=== PATIENT | female | born 1990 | race Caucasian/White ===

== ENCOUNTER 2018-06-12 09:33 | Emergency (ER) | payer BC, MEDICAID, OTHER ==
--- NOTE | 2018-06-12 09:57 | ER Document Report ---
ED Medical Screen (RME) - General Chief Complaint: Headache Stated Complaint: HEADACHE/RIGHT SIDE NUMBNESS/RIGHT EYE BLURRY Time Seen by Provider: 06/12/18 09:50 Primary Care Provider: PERRY SANTIZO MD [Primary Care Provider] - Follow up as needed Notes: Patient is a 28-year-old female that presents to the emergency department for chief complaint of headache and right-sided numbness. 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 ROS: Other than noted above, the 12 point review of systems was reviewed with the patient and were negative, all pertinent findings are included in the HPI. PHYSICAL EXAMINATION: Vital signs reviewed. GENERAL: Well-appearing, well-nourished and in no acute distress. HEAD: Atraumatic, normocephalic. EYES: Pupils equal round extraocular movements intact, conjunctiva are normal. ENT: Nares patent NECK: Normal range of motion CV: Heart regular rate and rhythm LUNGS: No respiratory distress Musculoskeletal: Normal range of motion NEUROLOGICAL: Normal speech, facial droop noted, there is decreased sensation to light touch in the upper and lower extremities on my exam, strength with print producer is +4/5 on the right compared to the left, patient is able to flex at the shoulders and hips, with +5/5 strength. PSYCH: Normal mood, normal affect. MDM: Patient seen and examined for rapid initial assessment. Vital signs reviewed. A comprehensive ED assessment and evaluation of the patient, analysis of test results and completion of the medical decision making process will be conducted by additional ED providers. *Note is created using voice recognition software and may contain spelling, syntax or grammatical errors. TRAVEL OUTSIDE OF THE [place] IN LAST 30 DAYS: No - Related Data Allergies/Adverse Reactions: No Known Allergies Allergy (Verified 06/12/18 09:50) Past Medical History - Social History Frequency of alcohol use: None Drug Abuse: None - Past Medical History Cardiac Medical History: Reports: Hx Heart Murmur Denies: Hx Hypertension Renal/ Medical History: Reports: Hx Kidney Stones. Denies: Hx Peritoneal Dialysis Past Surgical History: Reports: Hx Section - x 3 - Immunizations Hx Diphtheria, Pertussis, Tetanus Vaccination: Yes - 12/17/10 Physical Exam - Vital signs Vitals: Temp Pulse Resp BP Pulse Ox 98.2 F 83 18 149/60 H 100 06/12/18 09:39 06/12/18 09:39 06/12/18 09:39 06/12/18 09:39 06/12/18 09:39 Course - Vital Signs Vital signs: Temp Pulse Resp BP Pulse Ox 98.2 F 83 18 149/60 H 100 06/12/18 09:39 06/12/18 09:39 06/12/18 09:39 06/12/18 09:39 06/12/18 09:39 Doctor's Discharge - Discharge Referrals: PERRY SANTIZO MD [Primary Care Provider] - Follow up as needed
[2018-06-12] MEDS ORDERED: NORMAL SALINE 1000 ML 1,000 ML IV ONE (10:16)
--- NOTE | 2018-06-12 10:19 | ER Document Report ---
ED Headache - General Chief Complaint: Headache Stated Complaint: HEADACHE/RIGHT SIDE NUMBNESS/RIGHT EYE BLURRY Time Seen by Provider: 06/12/18 09:50 Primary Care Provider: ALESSANDRA JOVEL MD [NO LOCAL MD] - Follow up tomorrow PERRY SANTIZO MD [ACTIVE STAFF] - Follow up as needed Mode of Arrival: Ambulatory Information source: Patient Notes: Patient presents complaining of right-sided headache that started around 6:40 PM yesterday and lasted for about 30 minutes. Patient reports that whenever the pain started she did have some blurred vision and some tearing to the right eye. Patient states she did take Tylenol to help her headache pain. Patient reports having a right-sided numbness and weakness to the right upper and lower extremity. Patient denies any fever or head injury. Patient denies any recent illnesses. Patient denies any family history of aneurysm or headache. Patient reports her mother does have a history of Moulton's palsy. Patient states that headache pain is gone at this time although reports a mild pressure to the right side of her head. TRAVEL OUTSIDE OF THE [place] IN LAST 30 DAYS: No - HPI Patient complains to provider of: Headache Onset: Yesterday Onset was: Abrupt Timing: Gone now Quality of pain: Pressure Pain Level: 0 Associated symptoms: Tingling/numb sensation. denies: Fever, Nausea/vomiting, Neck pain, Photophobia, Stiff neck Similar symptoms previously: No Recently seen / treated by doctor: No - Related Data Allergies/Adverse Reactions: No Known Allergies Allergy (Verified 06/12/18 09:50) Past Medical History - General Information source: Patient - Social History Smoking Status: Current Every Day Smoker Frequency of alcohol use: None Drug Abuse: None Occupation: Retail Family History: Reviewed & Not Pertinent Patient has suicidal ideation: No Patient has homicidal ideation: No - Past Medical History Cardiac Medical History: Reports: Hx Heart Murmur Denies: Hx Hypertension Renal/ Medical History: Reports: Hx Kidney Stones. Denies: Hx Peritoneal Dialysis Past Surgical History: Reports: Hx Section - x 3 - Immunizations Hx Diphtheria, Pertussis, Tetanus Vaccination: Yes - 12/17/10 Review of Systems - Review of Systems Constitutional: No symptoms reported. denies: Fever, Recent illness EENT: Blurred vision - Yesterday when headache started, now resolved, Tearing Cardiovascular: No symptoms reported. denies: Syncope, Dizziness Respiratory: No symptoms reported. denies: Cough Gastrointestinal: No symptoms reported. denies: Vomiting Genitourinary: No symptoms reported Female Genitourinary: No symptoms reported Musculoskeletal: No symptoms reported. denies: Back pain, Neck pain Skin: No symptoms reported. denies: Rash Hematologic/Lymphatic: No symptoms reported Neurological/Psychological: Headaches, Numbness - Right upper and lower extremity yesterday, now resolved, Tingling - Right upper and lower extremity. denies: Weakness, Lost consciousness Physical Exam - Vital signs Vitals: Temp Pulse Resp BP Pulse Ox 98.2 F 83 18 149/60 H 100 06/12/18 09:39 06/12/18 09:39 06/12/18 09:39 06/12/18 09:39 06/12/18 09:39 - General General appearance: Appears well, Alert In distress: None - HEENT Head: Normocephalic, Atraumatic Eyes: Normal Conjunctiva: Normal Extraocular movements intact: Yes Eyelashes: Normal Pupils: PERRL Corrective lenses worn: No Fundascopic: Normal. No: Retinal detachment, Retinal hemorrhage Nasal: Normal Mouth/Lips: Normal Mucous membranes: Normal Pharynx: Normal Neck: Normal, Supple. No: Lymphadenopathy, Meningismus - Respiratory Respiratory status: No respiratory distress Chest status: Nontender Breath sounds: Normal. No: Rales, Rhonchi, Stridor, Wheezing Chest palpation: Normal - Cardiovascular Rhythm: Regular Heart sounds: S1 appreciated, S2 appreciated Murmur: No - Back Back: Normal, Nontender. No: Vertebra tenderness - Extremities General upper extremity: Normal inspection, Normal ROM General lower extremity: Normal inspection, Normal ROM - Neurological Neuro grossly intact: Yes Cognition: Normal Orientation: AAOx4 Nani Coma Scale Eye Opening: Spontaneous Nani Coma Scale Verbal: Oriented [place] Coma Scale Motor: Obeys Commands Nani Coma Scale Total: 15 Speech: Normal. No: Dysarthria Cranial nerves: Normal. No: Facial palsy, Tongue deviation Cerebellar coordination: Heel-contreras, Finger-nose rhombey, Rapid alt. movements. No: Gait ataxia Additional motor exam normals: Equal national account executive. No: Involuntary movements, Weakness, Hemiplegia Sensory: Normal, Other - Subjective report of paresthesia to lateral aspect of right thigh and entire right upper extremity and right side of face - Psychological Associated symptoms: Normal affect, Normal mood - Skin Skin Temperature: Warm Skin Moisture: Dry Skin Color: Normal Course - Re-evaluation Re-evalutation: 06/12/18 11:45 Patient complains of only a mild pressure to the right side of her head. Patient denies it is a pain. Patient does report subjective tingling to the right upper extremity, right side of face and to the lateral aspect of her right thigh. 06/12/18 12:02 Patient without any objective national account executive weakness at this time. Patient does report subjective tingling to the right side of her face, right upper arm and lateral aspect of her right thigh. Consulted with Dr. Bagley who recommends treating patient for likely complex migraine with Compazine. Does not recommend any additional imaging at this time. 06/12/18 12:56 Patient reports headache pain is resolved at this time. Patient states tingling to the arm and leg persists. Discussed this with Dr. Bagley who recommends outpatient follow-up with neurology, no additional testing advised at this time. The patient presents with headache without signs of VP PUBL[employer]ER DEVELOPMENT bleed, stroke, infectio n, or other serious etiology. Given the extremely low risk of these diagnoses further testing and evaluation for these possibilities does not appear to be indicated at this time. The patient has been instructed to return if the symptoms worsen or change in any way. 06/12/18 19:26 - Vital Signs Vital signs: Temp Pulse Resp BP Pulse Ox 98.1 F 82 18 134/62 H 98 06/12/18 12:30 06/12/18 12:30 06/12/18 12:30 06/12/18 12:30 06/12/18 12:30 - Laboratory Result Diagrams: 06/12/18 10:39 06/12/18 10:39 Laboratory results interpreted by me: 06/12/18 06/12/18 10:39 10:39 Chloride 108 H Urine Blood MODERATE H - Diagnostic Test Radiology reviewed: Reports reviewed - EKG Interpretation by Pa EKG shows normal: Sinus rhythm Rate: Normal Additional EKG results interpreted by me: 06/12/18 13:[address] elevation or T wave inversion. QTC 419 Discharge - Discharge Clinical Impression: Migraine Qualifiers: Migraine type: unspecified Status migrainosus presence: without status migrainosus Intractability: not intractable Qualified Code(s): G43.909 - Migr josh, unspecified, not intractable, without status migrainosus Condition: Stable Disposition: HOME, SELF-CARE Instructions: Intravenous Compazine for Headaches ([facility]), Use of Diphenhydramine, Headache ([facility]), Toradol Injection ([facility]) Additional Instructions: Return immediately for any new or worsening symptoms Followup with your primary care provider, call tomorrow to make a followup appointment Follow-up with neurologist for further evaluation, call today for an appointment Return for any weakness, worsening or persistent headache, change in speech, or any new or worsening symptoms. [facility] [address] [facility] [address] [place] Open 8:00 AM - 3:00 PM [facility] [address] [facility] Prescriptions: Butalb/Acetaminophen/Caffeine [Fioricet (50-325-40 mg) Tablet] 1 - 2 tab PO Q4H PRN #10 each PRN Reason: Forms: Return to Work Referrals: PERRY SANTIZO MD [ACTIVE STAFF] - Follow up as needed ALESSANDRA JOVEL MD [NO LOCAL MD] - Follow up tomorrow
[2018-06-12 10:49] LABS: ABSOLUTE EOSINOPHILS # (AUTO) 0.1 10^3/uL (0.0-0.6); ABSOLUTE LYMPHOCYTES (AUTO) 2.5 10^3/uL (0.5-4.7); ABSOLUTE MONOCYTES (AUTO) 0.4 10^3/uL (0.1-1.4); ABSOLUTE NEUT (AUTO) 4.2 10^3/uL (1.7-8.2); BASOPHILS % (AUTO) 0.6 % (0-2); EOSINOPHILS % (AUTO) 1.3 % (0-6); HEMOGLOBIN 14.2 g/dL (12.0-15.5); LYMPHOCYTES % (AUTO) 34.4 % (13-45); MEAN CORPUSCULAR HEMOGLOBIN 30.6 pg (27.0-33.4); MEAN CORPUSCULAR HGB CONC 34.6 g/dL (32.0-36.0); MEAN CORPUSCULAR VOLUME 89 fl (80-97); MONOCYTES % (AUTO) 4.9 % (3-13); PLATELET COUNT 203 10^3/uL (150-450); RED BLOOD COUNT 4.63 10^6/uL (3.72-5.28); RED CELL DISTRIBUTION WIDTH 12.8 % (11.5-14.0); SEGMENTED NEUTROPHILS % (AUTO) 58.8 % (42-78); TOTAL CELLS COUNTED % (AUTO) 100 %; WHITE BLOOD COUNT 7.2 10^3/uL (4.0-10.5)
[2018-06-12 11:02] LABS: APPEARANCE,URINE SLIGHTLY-CLOUDY; BILIRUBIN,URINE NEGATIVE (NEGATIVE); COLOR,URINE YELLOW; GLUCOSE, URINE NEGATIVE (NEGATIVE); KETONES,URINE NEGATIVE (NEGATIVE); LEUKOCYTE ESTERASE,URINE NEGATIVE (NEGATIVE); NITRITE,URINE NEGATIVE (NEGATIVE); PROTEIN,URINE NEGATIVE (NEGATIVE); URINE SPECIFIC GRAVITY 1.013; UROBILINOGEN,URINE NEGATIVE mg/dL (<2.0)
[2018-06-12 11:12] LABS: ALANINE AMINOTRANSFERASE 24 U/L (9-52); ALBUMIN 4.2 g/dL (3.5-5.0); ALKALINE PHOSPHATASE 95 U/L (38-126); ANION GAP 8 (5-19); ASPARTATE AMINO TRANSFERASE 27 U/L (14-36); BILIRUBIN,DIRECT 0.3 mg/dL (0.0-0.4); BILIRUBIN,TOTAL 0.5 mg/dL (0.2-1.3); BLOOD UREA NITROGEN 7 mg/dL (7-20); CALCIUM 9.6 mg/dL (8.4-10.2); CARBON DIOXIDE 25 mmol/L (22-30); CHLORIDE 108 mmol/L (98-107); GLUCOSE 88 mg/dL (75-110); SODIUM 140.7 mmol/L (137-145); TOTAL PROTEIN 7.1 g/dL (6.3-8.2)
--- NOTE | 2018-06-12 11:19 | RADIOLOGY REPORT (SQ) ---
EXAM DESCRIPTION: CT HEAD WITHOUT COMPLETED DATE/TIME: 06/12/2018 11:08 am REASON FOR STUDY: right sided numbness COMPARISON: None. TECHNIQUE: Axial images acquired through the brain without intravenous contrast. Images reviewed wi th bone, brain and subdural windows. Additional sagittal and coronal reconstructions were generated. Images stored on PACS. All CT scanners at this facility use dose modulation, iterative reconstruction, and/or weight based d osing when appropriate to reduce radiation dose to as low as reasonably achievable (ALARA). [facility]: Dose Right [facility]: CareDose [facility]: Dose Right [facility]: Teradose 4D [facility]: [employer] RADIATION DOSE: CT Rad equipment meets quality standard of care and radiation dose reduction techniq ues were employed. CTDIvol: 53.2 mGy. DLP: 1017 mGy-cm. mGy. LIMITATIONS: None. FINDINGS: VENTRICLES: Normal size and contour. CEREBRUM: No masses. No hemorrhage. No midline shift. No evidence for acute infarction. Normal gra y/white matter differentiation. No areas of low density in the white matter. CEREBELLUM: No masses. No hemorrhage. No alteration of density. No evidence for acute infarction. EXTRAAXIAL SPACES: No fluid collections. No masses. ORBITS AND GLOBE: No intra- or extraconal masses. Normal contour of globe without masses. CALVARIUM: No fracture. PARANASAL SINUSES: No fluid or mucosal thickening. SOFT TISSUES: No mass or hematoma. OTHER: No other significant finding. IMPRESSION: NORMAL BRAIN CT WITHOUT CONTRAST. EVIDENCE OF ACUTE STROKE: NO. COMMENT: Quality ID # [id number]: Final reports with documentation of one or more dose reduction techniques (e.g., Automated exposure control, adjustment of the mA and/or kV according to patient size, use of iterative reconstruction technique) TECHNICAL DOCUMENTATION: JOB ID: [id number] [employer]- All Rights Reserved Reading location - IP/workstation name: [email or web address]
[2018-06-12] MEDS ORDERED: PROCHLORPERAZINE EDISYLATE INJ 10 MG/2 ML VIAL IV ONE (11:58)
[2018-06-12] MEDS ORDERED: KETOROLAC TROMETHAMINE INJ/PF 30 MG/1 ML SDV IV ONE (11:59)
[2018-06-12] MEDS ORDERED: DIPHENHYDRAMINE HCL 50 MG/ML VIAL IV ONE (11:59)
[2018-06-12 12:31] VITALS: BP 134/62
--- NOTE | 2018-06-12 21:24 | EKG REPORT ---
SEVERITY:- NORMAL ECG - SINUS RHYTHM : Confirmed by: Ashleigh Arthur MD 12-Jun-2018 21:23:26
== END 2018-06-12 13:22 | disposition home or self-care (01) ==
LOC: ER 09:33
DX: G43.909 Migraine, unspecified, not intractable, without status migrainosus (principal); H53.8 Other visual disturbances; R20.2 Paresthesia of skin; F17.200 Nicotine dependence, unspecified, uncomplicated
CPT/HCPCS: 93005; 99284; 96361; 96374; 96375; 36415; 82962; 83735; 84703; 85025; 80053; 81001; 70450; 93010; J1200; J1885; J0780; J7030

== ENCOUNTER 2019-01-17 11:40 | Emergency (ER) | payer OTHER ==
[2019-01-17 11:46] VITALS: BP 144/75
[2019-01-17] MEDS ORDERED: IBUPROFEN 800 MG TABLET PO ONE (12:24)
--- NOTE | 2019-01-17 12:24 | ER Document Report ---
ED Medical Screen (RME) - General Chief Complaint: Facial Swelling Stated Complaint: SWOLLEN FACE Time Seen by Provider: 01/17/19 12:20 Primary Care Provider: ANTOINE MATTHEW DO [Primary Care Provider] - Follow up as needed Mode of Arrival: Ambulatory Information source: Patient Notes: 28-year-old female presented to ED for complaint of facial swelling to the right side of her face. She states she does have a infected tooth upper right back molar. She states she never got her wisdom tooth does have minimal swelling to the right cheek and above the jawline but does not have swelling below the jaw line. Patient is alert oriented respirations regular nonlabored. She states it is difficult to open her mouth due to the pain. She states she smokes half pack a day, occasionally drinks, and does not use any drugs. She states she took Advil last night has not had anything today. Menstrual cycle January 02 I have greeted and performed a rapid initial assessment of this patient. A comprehensive ED assessment and evaluation of the patient, analysis of test results and completion of medical decision making process will be conducted by an additional ED providers. TRAVEL OUTSIDE OF THE [place] IN LAST 30 DAYS: No - Related Data Allergies/Adverse Reactions: No Known Allergies Allergy (Verified 06/12/18 09:50) Past Medical History - Past Medical History Cardiac Medical History: Reports: Hx Heart Murmur Denies: Hx Hypertension Renal/ Medical History: Reports: Hx Kidney Stones. Denies: Hx Peritoneal Dialysis Past Surgical History: Reports: Hx Section - x 3 - Immunizations Hx Diphtheria, Pertussis, Tetanus Vaccination: Yes - 12/17/10 Physical Exam - Vital signs Vitals: Temp Pulse Resp BP Pulse Ox 98 F 86 20 144/75 H 100 01/17/19 11:44 01/17/19 11:44 01/17/19 11:44 01/17/19 11:44 01/17/19 11:44 Course - Vital Signs Vital signs: Temp Pulse Resp BP Pulse Ox 98 F 86 20 144/75 H 100 01/17/19 11:44 01/17/19 11:44 01/17/19 11:44 01/17/19 11:44 01/17/19 11:44 Doctor's Discharge - Discharge Referrals: ANTOINE MATTHEW DO [Primary Care Provider] - Follow up as needed
== END 2019-01-17 14:02 | disposition left against medical advice (07) ==
LOC: ER 11:40
DX: R22.0 Localized swelling, mass and lump, head (principal); F17.200 Nicotine dependence, unspecified, uncomplicated; Z53.20 Procedure and treatment not carried out because of patient's decision for unspecified reasons
CPT/HCPCS: 99281